=== PATIENT | female | born 1980 | race African-American/Black ===

== ENCOUNTER 2024-11-17 07:46 | Emergency (ER) | payer MEDICAID, OTHER ==
[~2024-11-17] VITALS: Ht 167.6 cm; Wt 121.0 kg
[2024-11-17 07:53] VITALS: TEMP 35.9; O2SAT 100
[2024-11-17] MEDS ORDERED: NAPR-1129 MT (08:25)
[2024-11-17] MEDS ORDERED: CYCL10TA21 MT (08:25)
[2024-11-17 08:40] VITALS: BP 140/90; PULSE 80; RESP 18
[2024-11-17] MEDS: DEXAMETHASONE 10 MG/ML VIAL PO ONE (08:40)
[2024-11-17] MEDS: KETOROLAC 30MG/ML VIAL IM ONE (08:40)
== END 2024-11-17 08:50 | disposition home or self-care (01) ==
LOC: ER 07:46
DX: M51.372 Other intervertebral disc degeneration, lumbosacral region with discogenic back pain and lower extremity pain (principal); Z79.52 Long term (current) use of systemic steroids; Z79.899 Other long term (current) drug therapy
CPT/HCPCS: 99283; 96372; J1885; J1100